=== PATIENT | male | born 1950 | race Hispanic/Latino ===

== ENCOUNTER 2018-05-11 06:08 | Day surgery (SDC) | payer MEDICARE, OTHER ==
[2018-05-11 06:47] VITALS: BMI 273.5
[2018-05-11] MEDS ORDERED: Propofol 10 mg/ml Inj (20 ML) ONE ×2 (07:23→09:36)
[2018-05-11] MEDS ORDERED: Rocuronium 10 mg/ml (5 ml) ONE (07:24)
[2018-05-11] MEDS ORDERED: Midazolam 2 MG/2 ML VIAL ONE (07:24)
[2018-05-11] MEDS ORDERED: Albuterol HFA 90 mcg/actuation (8 g) ONE ×2 (07:35)
[2018-05-11] MEDS ORDERED: Glycopyrrolate 0.2 mg/ml (2ml vial) ONE (08:19)
[2018-05-11] MEDS ORDERED: ePHEDrine 50 mg/ml Inj ONE (08:19)
[2018-05-11] MEDS: Bupivacaine 0.5% 50 ML IJ ONE ×2 (08:32→09:48)
[2018-05-11] MEDS ORDERED: Neostigmine Methylsulfate 3mg/3ml Syringe IV ONE ×2 (09:21→09:23)
[2018-05-11] MEDS ORDERED: Desflurane Inhalation Anesthetic Liq (240 ml) ONE (09:23)
[2018-05-11] MEDS ORDERED: Esmolol 100 mg/10ml Inj IV ONE (09:36)
[2018-05-11] MEDS ORDERED: HYDROmorphone 0.5 mg/0.5 ml ISec IVP PRN (09:53)
[2018-05-11] MEDS ORDERED: Oxycodone/Acetaminophen 5/325 mg Tab PO PRN (09:53)
--- NOTE | 2018-05-11 09:53 | PCM.SURG1 ---
Surgeon's Initial Post Op Note - Surgeon's Notes Surgeon: Genaro Lacy MD Tool Room Attendant: Genet Olguin PA-C Type of Anesthesia: General Endo Anesthesia Administered By: Dr. Back Pre-Operative Diagnosis: left distal biceps tendon tear Operative Findings: see full note Post-Operative Diagnosis: same Operation Performed: open left distal biceps tendon tear Specimen/Specimens Removed: none Estimated Blood Loss: EBL {In ML}: 10 Blood Products Given: N/A Drains Used: No Drains Post-Op Condition: Fair Date of Surgery/Procedure: 05/11/18 Time of Surgery/Procedure: 09:52
[2018-05-11] MEDS ORDERED: Sodium Chloride 0.9% 1,000 ML IV SCH (10:00)
--- NOTE | 2018-05-11 10:46 | RAD ---
Date of service: 05/11/2018 PROCEDURE: Fluoroscopy up to 1 hr HISTORY: BICEPS TENDON REPAIR COMPARISON: TECHNIQUE: Fluoro time 12.5 sec. Cumulative dose 0.45 mGy. Four images were submitted FINDINGS: There is a small orthopedic anchor device at the insertion of the biceps tendon IMPRESSION: As above
[2018-05-11 11:00] VITALS: TEMP 98.1; O2SAT 97
[2018-05-11 12:20] VITALS: BP 127/78; PULSE 78; RESP 20
--- NOTE | 2018-05-11 21:32 | OP ---
PROCEDURE DATE: 05/11/2018 PREOPERATIVE DIAGNOSIS: Left distal biceps tendon rupture. POSTOPERATIVE DIAGNOSIS: Left distal biceps tendon rupture. PROCEDURE: Left open biceps tendon repair. SURGEON: Fox Lacy MD RECREATION INSTRUCTOR: Dr. Lacy was assisted by Ruth Olguin, the physician phlebotomy lab assistant. Ximena Floriannikolai was scrubbed and present throughout the entire case and assisted in the patient positioning, retraction and wound closure. ANESTHESIA: General. COMPLICATIONS: None. ESTIMATED BLOOD LOSS: 10 mL. TOURNIQUET TIME: 80 minutes at 250 mmHg. IMPLANT: Arthrex button. INDICATIONS FOR THE PROCEDURE: This is a 68-year-old gentleman who sustained an injury to his left elbow initially from a fall and then later by lifting who developed pain in the left upper extremity. Clinical examination was consistent with a positive hook sign in the antecubital fossa, pain and weakness resisted forearm supination. MRI examination was consistent with a full-thickness tear of his distal biceps tendon. Recommendations were for open repair. The risks, benefits and alternatives of the procedure were discussed with the patient including the possibility of nerve damage and re-rupture, and informed consent was obtained. OPERATIVE PROCEDURE: After surgical site was signed and verified in the preoperative holding area, the patient was taken to the operating room and placed supine on the operating room table. After administration of general anesthesia, the patient received 2 g of Ancef IV. Tourniquet was placed about the left arm. Care was taken to make sure all bony prominences and nerves were well padded and protected. The left upper extremity was prepped and draped in the usual sterile fashion. The bony landmarks were identified about the proximal forearm using the C-arm, and approximately a 4-cm horizontal incision was made over the radial bicipital tuberosity. Soft tissues were dissected bluntly. Care was taken to retract any cutaneous nerves, and dissection was carried down to the bicipital tuberosity keeping the forearm in supination. At this point, some seroma was appreciated and evacuated. The biceps tendon could be seen just proximal to the tuberosity. Part of it appeared to be still intact, and the distal end appeared to be significantly degenerative and bulbous. At this point, the intact fibers of the tendon were transected and the tendon could then be easily delivered out of the incision. The free end of the biceps tendon was then debrided to allow for an 8-mm tunnel and down to healthy-appearing tissue. Using an Arthrex FiberLoop, the distal biceps tendon was whipstitched. The sutures were passed through the holes in the button. At this point, Arthrex was backed down to the wound. Again, soft tissue was actually buttoned out to the bicipital tuberosity, and the guide pin for our bicortical hole was placed in the bicipital tuberosity. The position of the guide pin was confirmed using the C-arm. Satisfied, the hole was then drilled bicortically. With the guide pin still in place, a unicortical hole was placed using an 8-mm reamer. The wound was then copiously irrigated with antibiotic saline solution. At this point, the button was inserted into the socket and deployed on the far cortex. At this point using the sutures in the button, the tendon was recessed into the socket. Once this was done, the loop was closed by placing several knots. Finally using a free needle, one end of the suture was then passed through the tendon and then tied. At this point, the tendon appeared to be fully recessed into the socket. The position of the button was confirmed using the C-arm. Satisfied and due to the strong fixation, the decision was made not to put in interference screws. The wound was irrigated and the skin was closed in a layered fashion. A sterile dressing was applied, and a posterior splint was placed. The patient was awakened from the procedure, taken to the recovery room in stable condition. Fox Lacy MD
== END 2018-05-11 12:15 | disposition home or self-care (01) ==
LOC: SDS 06:08
PROVIDERS: ATTEND Orthopaedic Surgery
DX: S46.212A Strain of muscle, fascia and tendon of other parts of biceps, left arm, initial encounter (principal); W19.XXXA Unspecified fall, initial encounter; Y92.9 Unspecified place or not applicable
CPT/HCPCS: 24341; C1776; J0131; J0690; J1170; J2001; J2250; J2405; J2704; J2710; J3010; J7030; J7120